=== PATIENT | female | born 1950 | race Caucasian/White ===

== ENCOUNTER 2017-02-18 09:25 | Outpatient (CLI) | payer MEDICARE, OTHER ==
[2017-02-18 09:00] VITALS: BP 132/78
[~2017-02-18 09:25] MED LIST: ASPIRIN81 MG PO; AUGMENTIN TAB875 MG ORAL; DIOVAN160 MG PO; DIOVAN80 MG ORAL; FLAGYL500 MG ORAL; LEVAQUIN750 MG ORAL; TENORMIN25 MG PO; ZOFRAN ODT4 MG ORAL
--- NOTE | 2017-02-18 10:19 | GI Progress Note ---
Assessment/Plan Problems: (1) Diverticulitis ICD Codes: K57.92 - Diverticulitis of intestine, part unspecified, without perforation or abscess without bleeding SNOMED: 197829139 (2) Abdominal pain in female ICD Codes: R10.9 - Unspecified abdominal pain SNOMED: 91925900 (3) Nausea ICD Codes: R11.0 - Nausea SNOMED: 565534254 Status: stable Status Narrative Seen with Dr. Garcia. Assessment/Plan Rx Cipro + Flagyl for diverticulitis recommended [facility] SPECIALIST eval RTC x [address] if no imaging repeat colon 2019 Subjective Subjective RLQ abdominal pain, intermittent x few days emesis x 1 Next colonoscopy 2019 Objective T 97.7 BP 132/78 P 69 96 RA weight gain 22 lbs x 4 months unable to recall HTN medication General Appearance: no apparent distress, alert Cardiovascular: normal rate Respiratory/Chest: normal breath sounds, no respiratory distress Abdominal Exam: normal bowel sounds, non tender, soft Extremities: normal range of motion Yessenia Jones N.P. Feb 18, 2017 10:19
== END 2017-02-18 10:15 | disposition home or self-care (01) ==
LOC: PAN 09:25
DX: K57.92 Diverticulitis of intestine, part unspecified, without perforation or abscess without bleeding (principal); R10.9 Unspecified abdominal pain; R11.0 Nausea
CPT/HCPCS: 99211

== ENCOUNTER 2018-06-25 13:09 | Outpatient (CLI) | payer MEDICARE, OTHER ==
[~2018-06-25] VITALS: Ht 165.1 cm; Wt 95.3 kg
[2018-06-25] MEDS ORDERED: LISINOPRIL5 MG ORAL (15:40)
[2018-06-25] MEDS ORDERED: ASPIRIN EC81 MG ORAL (15:40)
[2018-06-25 15:41] VITALS: BP 139/71
--- NOTE | 2018-06-26 14:40 | GI Initial Consult Note ---
History of Present Illness General Date patient seen: Jun 25, 2018 Time patient seen: 14:37 Reason for Consultation: ABDOMINAL PAIN Present Illness HPI 68 year old female patient presents today with complaint of sharp left sided abdominal pain and occasional constipation. She had a colonoscopy back in 2014 , noted with colonic polyps. . Denies any unintentional weight loss or changes in dietary habits. No signs of abuse or neglect. Patient is not fall risk. Home Meds Reported Medications Lisinopril (LISINOPRIL*) 5 Mg Tablet, ORAL DAILY, TAB 06/25/18 Aspirin Ec* (ASPIRIN EC*) 81 Mg Tablet.dr, 81 MG ORAL DAILY, TAB 06/25/18 Discontinued Reported Medications Atenolol (Tenormin) 25 Mg Tab, 12.5 MG PO DAILY, #10 TAB Take 1 tablet by mouth every day. 09/29/12 Med list reviewed/reconciled: Yes Allergies: Coded Allergies: CODEINE (Verified Allergy, Unknown, 04/05/15) swelling LATEX (Verified Allergy, Unknown, 04/05/15) LEVOFLOXACIN (Unverified Allergy, Unknown, Itching, 04/05/15) unknown if reaction to Levaquin Pt had reaction when taking Levaquin and Flagyl METRONIDAZOLE (Unverified Allergy, Unknown, Itching, 04/05/15) unknown if reaction to Levaquin Pt had reaction when taking Levaquin and Flagyl MORPHINE (Verified Allergy, Unknown, 04/05/15) swelling SIMVASTATIN (Verified Allergy, Unknown, 04/05/15) muscle sore Patient History History Provided By: Patient, Medical Record [facility] Narrative Diverticulitis L colon 02/2015. She has a history of coronary disease and had an MN in 2008. She has hypertension, obesity, sleep apnea, acid reflux and hyperlipidemia. Past Surgical History: Cholecystectomy Lap Appendectomy Social History: Denies: smoking, alcohol use, drug use, other Review of Systems All Other Systems: negative except mentioned in HPI Physical Exam Vital Signs Date Time Temp Pulse Resp B/P (MAP) Pulse Ox O2 Delivery O2 Flow Rate FiO2 06/25/18 15:41 98.4 72 16 139/71 92 Sp02 EP Interpretation: reviewed, normal General Appearance: well appearing, no apparent distress, alert Head: normocephalic EENT: PERRL/EOMI, normal ENT inspection Neck: supple Respiratory: normal breath sounds, no respiratory distress Cardiovascular: normal rate Gastrointestinal: normal inspection, non tender, soft, normal bowel sounds, non -distended Rectal: deferred Genitourinary: no CVA tenderness Musculoskeletal: normal inspection, back normal Neurologic: normal inspection, alert, oriented x3, responsive Psychiatric: normal inspection, judgement/insight normal, memory normal Skin: normal inspection, normal color, no rash, warm/dry, palpation normal, well hydrated Lymphatic: normal inspection, no adenopathy GI: Plan Problems: (1) Constipation (2) Colonic polyp (3) Abdominal pain in female (4) Nausea (5) Nausea Plan Colonoscopy to be scheduled pending PA, will contact patient. - CLD & (Nulytely/Suprep/Movi-Prep) prep instructions given and acknowledged by patient. - NPO @ DE day prior procedure explained. Will follow with additional recs post procedure. F/U with TRAFFIC OPERATOR if negative Seen with Dr. Garcia. Thank you for this patient referral. The patient was seen and examined at bedside and all new and available data was reviewed in the patients chart. I agree with the above findings, impression and plan. (Patient seen earlier today. Signature stamp does not reflect patient encounter time.). - MD Kaern [facility]Hon[facility]ICE COMMUNICATIONS OPERATOR Jun 26, 2018 14:40
== END 2018-06-25 13:39 | disposition home or self-care (01) ==
LOC: PAN 13:09
DX: K59.00 Constipation, unspecified (principal); K63.5 Polyp of colon; R10.9 Unspecified abdominal pain; R11.0 Nausea; Z90.49 Acquired absence of other specified parts of digestive tract; Z90.89 Acquired absence of other organs; Z88.6 Allergy status to analgesic agent; Z79.82 Long term (current) use of aspirin
CPT/HCPCS: 99202